=== PATIENT | female | born 2000 | race American Indian/Alaskan Native ===

== ENCOUNTER 2020-03-24 20:43 | Emergency (ER) | payer SELFPAY ==
[2020-03-24 21:22] LABS: Basophils % (Auto) 0.1 % (0.0-1.8); Hematocrit 43.5 % (30.3-42.9); Hemoglobin 14.4 gm/dl (10.1-14.3); Lymphocytes # (Auto) 1.2 K/mm3 (1.2-5.4); Lymphocytes % (Auto) 11.5 % (13.4-35.0); Mean Corpuscular HGB Conc 33 % (30-34); Mean Corpuscular Volume 90 fl (79-97); Monocytes # (Auto) 0.7 K/mm3 (0.0-0.8); Monocytes % (Auto) 7.1 % (0.0-7.3); Platelet Count 238 K/mm3 (140-440); Red Blood Count 4.83 M/mm3 (3.65-5.03); Red Cell Distribution Width 13.5 % (13.2-15.2)
[2020-03-24 21:37] LABS: Alanine Aminotransferase 24 units/L (7-56); Albumin 4.7 g/dL (3.9-5); BUN/Creatinine Ratio 22; Blood Urea Nitrogen 20 mg/dL (7-17); Calcium 9.7 mg/dL (8.4-10.2); Hemolysis Index 8
[2020-03-24 22:14] VITALS: BP 132/75
[2020-03-24] MEDS ORDERED: diphenhydrAMINE 50 MG/ML VIAL IV ONE (22:34)
[2020-03-24] MEDS ORDERED: METOCLOPRAMIDE 10 MG/2 ML INJ IV ONE (22:34)
[2020-03-24] MEDS ORDERED: KETOROLAC 30 MG/1 ML INJ IV ONE (22:34)
[2020-03-24] MEDS ORDERED: SODIUM CHLORIDE 0.9% 1000 ML 1,000 ML IV ONE (22:34)
[2020-03-24] MEDS ORDERED: FAMOTIDINE 20 MG/2 ML INJ IV ONE (22:34)
--- NOTE | 2020-03-24 22:39 | Emergency Department Report ---
ED Abdominal Pain HPI - General Chief Complaint: Abdominal Pain Stated Complaint: ABDOMINAL PAIN Source: patient Mode of arrival: Ambulatory Limitations: No Limitations - History of Present Illness Initial Comments: Patient is a nulliparous 19-year-old -[place] female with a history of anxiety, depression and bipolar disorder who presents to the ED with acute onset persistent severe diffuse abdominal pain and intermittent nausea and vomiting for the last 2 weeks, worse in the last 2 days. Patient states that the symptoms started after she took medications for Plan B 2 weeks ago. Patient denies dizziness, syncope, chest pain, fever, chills, cough, dysuria, urinary frequency and urgency, vaginal bleeding, vaginal discharge, diarrhea, sore throat, headache or syncope and lightheadedness. MD Complaint: abdominal pain, other (nausea and vomiting) -: Sudden, week(s) (2) Location: suprapubic Radiation: suprapubic Migration to: periumbilical, suprapubic Severity: severe Severity scale (0 -10): 8 Quality: cramping, aching, sharp Consistency: constant Improves With: nothing Worsens With: eating, vomiting Associated Symptoms: denies other symptoms, nausea, vomiting, anorexia. denies: diarrhea, fever, chills, constipation, dysuria, hematemesis, hematochezia, me nereida - Related Data LMP Date: 03/01/20 Previous Rx's Medication Instructions Recorded Last Taken Type Dicyclomine [Bentyl] 20 mg PO Q6H PRN #30 tablet 03/25/20 Unknown Rx Famotidine [Pepcid] 20 mg PO Q12H #60 tablet 03/25/20 Unknown Rx Ondansetron [Zofran Odt] 4 mg PO Q6HR PRN #20 tab.rapdis 03/25/20 Unknown Rx Allergies Allergy/AdvReac Type Severity Reaction Status Date / Time No Known Allergies Allergy Unverified 03/24/20 20:51 ED Review of Systems ROS: Stated complaint: ABDOMINAL PAIN Other details as noted in HPI Constitutional: denies: chills, fever Eyes: denies: eye pain, eye discharge, vision change ENT: denies: ear pain, throat pain Respiratory: denies: cough, shortness of breath, wheezing Cardiovascular: denies: chest pain, palpitations Endocrine: no symptoms reported Gastrointestinal: abdominal pain, nausea, vomiting. denies: diarrhea Genitourinary: denies: urgency, dysuria, discharge Musculoskeletal: denies: back pain, joint swelling, arthralgia Skin: denies: rash, lesions Neurological: denies: headache, weakness, paresthesias Psychiatric: denies: anxiety, depression Hematological/Lymphatic: denies: easy bleeding, easy bruising ED Past Medical Hx - Past Medical History Hx Psychiatric Treatment: Yes (Anxiety, Bipolar) - Surgical History Past Surgical History?: No - Social History Smoking Status: Never Smoker Substance Use Type: None - Medications Home Medications: Home Medications Medication Instructions Recorded Confirmed Last Taken Type Dicyclomine [Bentyl] 20 mg PO Q6H PRN #30 tablet 03/25/20 Unknown Rx Famotidine [Pepcid] 20 mg PO Q12H #60 tablet 03/25/20 Unknown Rx Ondansetron [Zofran Odt] 4 mg PO Q6HR PRN #20 tab.rapdis 03/25/20 Unknown Rx ED Physical Exam - General Limitations: No Limitations General appearance: alert, in no apparent distress - Head Head exam: Present: atraumatic, normocephalic, normal inspection - Eye Eye exam: Present: normal appearance, PERRL, EOMI Pupils: Present: normal accommodation - ENT ENT exam: Present: normal exam, normal orophraynx, mucous membranes moist, TM's normal bilaterally, normal external ear exam - Neck Neck exam: Present: normal inspection, full ROM - Respiratory Respiratory exam: Present: normal lung sounds bilaterally. Absent: respiratory distress, wheezes, rales, stridor, chest wall tenderness, accessory muscle use, decreased breath sounds, prolonged expiratory - Cardiovascular Cardiovascular Exam: Present: regular rate, normal rhythm, normal heart sounds. Absent: systolic murmur, diastolic murmur, rubs, gallop - GI/Abdominal GI/Abdominal exam: Present: soft, tenderness (Palpable diffuse abdominal tenderness), normal bowel sounds, hyperactive bowel sounds. Absent: guarding, rebound - Extremities Exam Extremities exam: Present: normal inspection, full ROM, normal capillary refill - Back Exam Back exam: Present: normal inspection, full ROM. Absent: tenderness, CVA tenderness (R), muscle spasm, paraspinal tenderness, vertebral tenderness - Neurological Exam Neurological exam: Present: alert, oriented X3, CN II-XII intact, normal gait, reflexes normal - Psychiatric Psychiatric exam: Present: normal affect, normal mood - Skin Skin exam: Present: warm, dry, intact, normal color. Absent: rash ED Course Vital Signs 03/24/20 20:47 Pulse Rate 83 Respiratory 20 Rate Blood Pressure 132/75 O2 Sat by Pulse 100 Oximetry ED Medical Decision Making - Lab Data Result diagrams: 03/24/20 20:56 03/24/20 20:56 - Radiology Data Radiology results: report reviewed, image reviewed Findings [facility] [address] [place] [address] Cat Scan Report Signed Patient: CORNELIO ANG MR#: [id number] : 2000 Acct:[id number] Age/Sex: 19 / F ADM Date: 03/24/20 Loc: ED Attending Dr: Ordering Physician: FELY DAIGLE Date of Service: 03/24/20 Procedure(s): CT abdomen pelvis w con Accession Number(s): [id number] cc: FELY DAIGLE CT ABDOMEN AND PELVIS WITH CONTRAST INDICATION / CLINICAL INFORMATION: Pt complains of abdominal pain with nausea and vomiting. TECHNIQUE: Axial CT images were obtained through the abdomen and pelvis after 100 cc Omnipaque 300 milligrams percent IV contrast. All CT scans at this location are performed using CT dose reduction for ALARA by means of automated exposure control. COMPARISON: None available. FINDINGS: LOWER CHEST: No significant abnormality. LIVER: No significant abnormality. GALLBLADDER: No significant abnormality. BILE DUCTS: No significant abnormality. PANCREAS: No significant abnormality. SPLEEN: No significant abnormality. ADRENALS: No significant abnormality. RIGHT KIDNEY and URETER: No significant abnormality. LEFT KIDNEY and URETER: No significant abnormality. STOMACH and SMALL BOWEL: No significant abnormality. COLON: No significant abnormality. APPENDIX: No significant abnormality. PERITONEUM: No free fluid. No free air. No fluid collection. LYMPH NODES: No significant adenopathy. AORTA and ARTERIES: No significant abnormality. IVC and VEINS: No significant abnormality. URINARY BLADDER: No significant abnormality. REPRODUCTIVE ORGANS: No significant abnormality. ADDITIONAL FINDINGS: None. SKELETAL SYSTEM: No significant abnormality. IMPRESSION: 1. No significant abnormality. Signer Name: Alistair Del Castillo MD Signed: 03/25/2020 3:10 AM Workstation Name: [id number] Transcribed By: JUAN Dictated By: Alistair Del Castillo MD Electronically Authenticated By: Alistair Del Castillo MD Signed Date/Time: 03/25/20309 DD/ 7 TD/TT: - Medical Decision Making This is a nulliparous 19-year-old -[place] female with a history of anxiety, depression and bipolar disorder who presents to the ED with acute onset persistent severe diffuse abdominal pain and intermittent nausea and vomiting for the last 2 weeks, worse in the last 2 days. Patient states that the symptoms started after she took medications for Plan B 2 weeks ago. In the ED, patient is alert and oriented x3 and is not in distress. Patient was treated for nausea and vomiting, also given antacids and pain medications. Lab test results were reviewed and are all nonactionable except for mild hypokalemia of 3.1 mmol/L and elevated BUN of 20. Patient also received normal saline 1 L IV bolus x1, and was also treated in the ED with potassium chloride 40 mEq p.o. x1. Abdomen pelvis CT scan with contrast shows no acute abnormalities. On reevaluation, patient passed oral fluid challenge in the ED by drinking orange juice in the ED and asking for more. Patient was therefore discharged home on antiemetics, antacids and pain medications and was advised to maintain a clear liquid diet for 12 to 24 hours, and follow-up with her primary care physician in 5 to 7 days for reevaluation or return to the ED immediately if symptoms get worse. - Differential Diagnosis Gastroenteritis; GERD; UTI; gastritis; dehydration; appendicitis; colitis Critical care attestation.: If time is entered above; I have spent that time in minutes in the direct care of this critically ill patient, excluding procedure time. ED Disposition Clinical Impression: Abdominal pain, generalized, Nausea and vomiting in adult patient, Viral gastroenteritis Disposition: DC-01 TO HOME OR SELFCARE Is pt being admited?: No Does the pt Need Aspirin: No Condition: Stable Instructions: Acute Nausea and Vomiting (ED), Abdominal Pain (ED), Gastroenteritis (ED) Additional Instructions: All test results show no acute abnormalities except for mild hypokalemia. The abdomen pelvis CT scan with contrast showed no acute abnormalities. Therefore maintain a clear liquid diet for 12 to 24 hours, take medication with food, drink plenty of fluids and follow-up with your primary care physician in 5 to 7 days for reevaluation. Return to the ED immediately if symptoms get worse. Prescriptions: Dicyclomine [Bentyl] 20 mg PO Q6H PRN #30 tablet PRN Reason: Abdominal pain Famotidine [Pepcid] 20 mg PO Q12H #60 tablet Ondansetron [Zofran Odt] 4 mg PO Q6HR PRN #20 tab.rapdis PRN Reason: Nausea Referrals: [facility] [Outside] - 3-5 Days Time of Disposition: 03:58 Print Language: MALAYSIAN
[2020-03-25] MEDS ORDERED: ONDANSETRON 4 MG/2 ML INJ IV ONE (01:57)
[2020-03-25 02:07] LABS: Bacteria,Urine 1+ /HPF (Negative); Bilirubin,Urine NEG (Negative); Blood,Urine MOD (Negative); Color,Urine Yellow (Yellow); Mucus,Urine 3+ /HPF
[2020-03-25] MEDS ORDERED: POTASSIUM CHLORIDE ER 20 MEQ TAB PO ONE (02:11)
--- NOTE | 2020-03-25 03:14 | Cat Scan Report ---
CT ABDOMEN AND PELVIS WITH CONTRAST INDICATION / CLINICAL INFORMATION: Pt complains of abdominal pain with nausea and vomiting. TECHNIQUE: Axial CT images were obtained through the abdomen and pelvis after 100 cc Omnipaque 300 milligrams pe rcent IV contrast. All CT scans at this location are performed using CT dose reduction for ALARA by means of automated exposure control. COMPARISON: None available. FINDINGS: LOWER CHEST: No significant abnormality. LIVER: No significant abnormality. GALLBLADDER: No significant abnormality. BILE DUCTS: No significant abnormality. PANCREAS: No significant abnormality. SPLEEN: No significant abnormality. ADRENALS: No significant abnormality. RIGHT KIDNEY and URETER: No significant abnormality. LEFT KIDNEY and URETER: No significant abnormality. STOMACH and SMALL BOWEL: No significant abnormality. COLON: No significant abnormality. APPENDIX: No significant abnormality. PERITONEUM: No free fluid. No free air. No fluid collection. LYMPH NODES: No significant adenopathy. AORTA and ARTERIES: No significant abnormality. IVC and VEINS: No significant abnormality. URINARY BLADDER: No significant abnormality. REPRODUCTIVE ORGANS: No significant abnormality. ADDITIONAL FINDINGS: None. SKELETAL SYSTEM: No significant abnormality. IMPRESSION: 1. No significant abnormality. Signer Name: Alistair Del Castillo MD Signed: 03/25/2020 3:10 AM Workstation Name: [id number]
== END 2020-03-25 04:20 | disposition home or self-care (01) ==
LOC: ED 20:43
DX: A08.39 Other viral enteritis (principal); R11.2 Nausea with vomiting, unspecified; F41.9 Anxiety disorder, unspecified; F31.9 Bipolar disorder, unspecified; Z79.899 Other long term (current) drug therapy
CPT/HCPCS: 36415; 74177; 80053; 81001; 84703; 85025; 87086; 96361; 96365; 96375; 99284; J1200; J1885; J2405; J2765; J7030; Q9967